=== PATIENT | female | born 1975 | race Caucasian/White ===

== ENCOUNTER 2025-02-02 08:44 | Emergency (ER) | payer OTHER ==
[~2025-02-02] VITALS: Ht 165.1 cm; Wt 75.0 kg
[2025-02-02 08:46] VITALS: TEMP 37.1; O2SAT 99
[2025-02-02 10:06] VITALS: BP 179/70; PULSE 96; RESP 18
[2025-02-02] MEDS: KETOROLAC 30MG/ML VIAL IM ONE (10:06)
== END 2025-02-02 12:33 | disposition home or self-care (01) ==
LOC: ER 08:44
DX: R51.9 Headache, unspecified (principal); M54.2 Cervicalgia; M54.50 Low back pain, unspecified; I10 Essential (primary) hypertension
CPT/HCPCS: 81025; 72125; 74176; 96372; 99285; J1885; Z7610 ×2